=== PATIENT | female | born 1975 | race Hispanic/Latino ===

== ENCOUNTER 2022-12-18 12:25 | Emergency (ER) | payer BC ==
[~2022-12-18] VITALS: Ht 157.5 cm; Wt 82.6 kg
[2022-12-18] MEDS ORDERED: SODIUM CHLORIDE 0.9% 1000ML 1,000 ML ONE (13:30)
[2022-12-18] MEDS ORDERED: ONDANSETRON HCL INJ 2MG/ML 2ML 2 MG/ML VIAL ONE (13:30)
[2022-12-18] MEDS ORDERED: CEFTRIAXONE 1 GM VIAL ONE (13:30)
[2022-12-18] MEDS ORDERED: KETOROLAC TROMETHAMINE 30 MG/ML VIAL ONE (13:30)
[2022-12-18] MEDS ORDERED: FAMOTIDINE 20 MG/2 ML VIAL IV STA (13:31)
[2022-12-18] MEDS ORDERED: FAMOTIDINE 20 MG/2 ML VIAL IV ONE (13:31)
[2022-12-18] MEDS ORDERED: ONDANSETRON HCL INJ 2MG/ML 2ML 2 MG/ML VIAL IV STA (13:31)
[2022-12-18] MEDS ORDERED: KETOROLAC TROMETHAMINE 30 MG/ML VIAL IV STA (13:31)
[2022-12-18] MEDS ORDERED: SODIUM CHLORIDE 0.9% 1000ML 1,000 ML IV SCH (13:45)
[2022-12-18] MEDS ORDERED: CEFUROXIME500 MG PO (16:20)
[2022-12-18] MEDS ORDERED: ONDANSETRON ODT4 MG PO (16:23)
[2022-12-18 16:47] VITALS: BP 113/53
== END 2022-12-18 16:51 | disposition home or self-care (01) ==
LOC: FSED 12:58
DX: R31.29 Other microscopic hematuria (principal); N39.0 Urinary tract infection, site not specified; R19.09 Other intra-abdominal and pelvic swelling, mass and lump; R11.0 Nausea; F17.210 Nicotine dependence, cigarettes, uncomplicated
CPT/HCPCS: 74176; 80053; 81003; 81025; 85025; 87086; 87186; 99284; J0696; J1885; J2405; J7030

== ENCOUNTER 2024-07-26 15:36 | Emergency (ER) | payer OTHER ==
[~2024-07-26] VITALS: Ht 157.5 cm; Wt 82.6 kg
[~2024-07-26 15:36] MED LIST: CEFUROXIME500 MG PO; ONDANSETRON ODT4 MG PO
[2024-07-26] MEDS ORDERED: IOPAMIDOL 370 MG/ML 100 ML INFUS..BTL INJ ONE (17:18)
[2024-07-26] MEDS: ACETAMINOPHEN 325 MG TAB PO ONE (17:40)
[2024-07-26] MEDS: SODIUM CHLORIDE 0.9% 1000ML 1,000 ML IV ONE (17:41)
[2024-07-26] MEDS ORDERED: BACTRIM DS TAB1 EACH PO (19:15)
[2024-07-26] MEDS ORDERED: CEPHALEXIN500 MG PO (19:16)
[2024-07-26 19:58] VITALS: PULSE 74; RESP 18; TEMP 99
[2024-07-26 20:01] VITALS: BP 118/60; PULSE 74; RESP 18; TEMP 99; O2SAT 96
== END 2024-07-26 20:01 | disposition home or self-care (01) ==
LOC: FSED 15:47
DX: R50.9 Fever, unspecified (principal); N12 Tubulo-interstitial nephritis, not specified as acute or chronic; R10.12 Left upper quadrant pain; Z11.52 Encounter for screening for COVID-19; Z87.442 Personal history of urinary calculi
CPT/HCPCS: 0223U; 74177; 80053; 81003; 85025; 87400; 96360; 99284; J0696; J7030; Q9967

== ENCOUNTER 2025-04-17 11:33 | Emergency (ER) | payer OTHER ==
[~2025-04-17] VITALS: Ht 165.1 cm; Wt 88.7 kg
[~2025-04-17 11:33] MED LIST changes: +BACTRIM DS TAB1 EACH PO; +CEPHALEXIN500 MG PO
[2025-04-17] MEDS: ACETAMINOPHEN 325 MG TAB PO ONE (12:23)
[2025-04-17] MEDS: KETOROLAC TROMETHAMINE 30 MG/ML VIAL IM ONE (12:24)
[2025-04-17] MEDS ORDERED: TYLENOL325 MG PO (12:36)
[2025-04-17] MEDS ORDERED: ZANAFLEX4 MG PO (12:36)
[2025-04-17] MEDS ORDERED: IBUPROFEN800 MG PO (12:36)
[2025-04-17 13:03] VITALS: PULSE 58; RESP 16; TEMP 97.7; O2SAT 99
== END 2025-04-17 13:01 | disposition home or self-care (01) ==
LOC: FSED 11:39
DX: M54.50 Low back pain, unspecified (principal); M17.12 Unilateral primary osteoarthritis, left knee; Z87.442 Personal history of urinary calculi
CPT/HCPCS: 72131; 81003; 96372; 99284; J1885

== ENCOUNTER 2025-08-06 12:36 | Emergency (ER) | payer OTHER ==
[~2025-08-06] VITALS: Ht 165.1 cm; Wt 90.4 kg
[~2025-08-06 12:36] MED LIST changes: +IBUPROFEN800 MG PO; +TYLENOL325 MG PO; +ZANAFLEX4 MG PO
[2025-08-06] MEDS: SODIUM CHLORIDE 0.9% 1000ML 1,000 ML IV ONE (15:16)
[2025-08-06] MEDS: CEFTRIAXONE 1 GM VIAL IV ONE (15:16)
[2025-08-06] MEDS: KETOROLAC TROMETHAMINE 30 MG/ML VIAL IV STA (15:16)
[2025-08-06] MEDS: ONDANSETRON HCL INJ 2MG/ML 2ML 2 MG/ML VIAL IV STA (15:16)
[2025-08-06] MEDS: Morphine 2mg Syringe 2 MG/ML SYR IV ONE (15:17)
[2025-08-06] MEDS ORDERED: CEPHALEXIN500 MG PO (17:30)
[2025-08-06] MEDS ORDERED: KETOROLAC TROME10 MG PO (17:30)
[2025-08-06 17:44] VITALS: PULSE 61; RESP 16; TEMP 98.3; O2SAT 97
== END 2025-08-06 17:44 | disposition home or self-care (01) ==
LOC: FSED 13:31
DX: R10.11 Right upper quadrant pain (principal); N39.0 Urinary tract infection, site not specified; M54.9 Dorsalgia, unspecified; M25.511 Pain in right shoulder; K76.0 Fatty (change of) liver, not elsewhere classified; F17.210 Nicotine dependence, cigarettes, uncomplicated
CPT/HCPCS: 71046; 73030; 74176; 80048; 80076; 81003; 84484; 85025; 96374; 96375; 99284; J0696; J1885; J2270; J2405; J7030